=== PATIENT | male | born 1975 | race Caucasian/White ===

== ENCOUNTER 2016-10-23 22:34 | Emergency (ER) | payer OTHER ==
[2016-10-23 23:08] VITALS: BP 135/87; PULSE 71; RESP 18; TEMP 98.2; O2SAT 99
--- NOTE | 2016-10-23 23:32 | ED PDOC ---
HPI: General Adult Time Seen by Provider: 10/23/16 23:08 Chief Complaint (Nursing): Back Pain History Per: Patient Additional Complaint(s): Pt. states for the past month he's had atraumatic, non-radiating L sided shoulder pain and atraumatic R sided upper back pain. Reports pain to L shoulder is present only with movement especially when attempting to lift arm above his head. Pt. states that pain in R upper back is worse with twisting of upper torso and when leaning forward. Pt. states upper back pain is also worse when he takes a deep breath. Denies hemoptysis, cough, chest pain, fever, rash, hx of DVT/PE, leg pain, trauma, fever. Of note pt. is R hand dominant. Also reports he took Advil once 15 days ago without any relief. Past Medical History Reviewed: Historical Data, Nursing Documentation, Vital Signs Vital Signs: Last Vital Signs Temp 98.2 F 10/23/16 23:06 Pulse 71 10/23/16 23:06 Resp 18 10/23/16 23:06 BP 135/87 10/23/16 23:06 Pulse Ox 99 10/23/16 23:06 - Family History Family History: States: No Known Family Hx - Immunization History Hx Tetanus Toxoid Vaccination: No - Home Medications Home Medications: Ambulatory Orders Medication Instructions Recorded Cyclobenzaprine [Cyclobenzaprine 10 mg PO Q8 PRN #30 tab 10/23/16 HCl] Meloxicam [Mobic] 7.5 mg PO DAILY PRN #30 tab 10/23/16 - Allergies Allergies/Adverse Reactions: Allergies Allergy/AdvReac Type Severity Reaction Status Date / Time No Known Allergies Allergy Unverified 08/04/14 21:06 Review of Systems ROS Statement: Except As Marked, All Systems Reviewed And Found Negative Musculoskeletal: Positive for: Shoulder Pain, Back Pain Physical Exam - Physical Exam Appears: Positive for: Well, Non-toxic, No Acute Distress Skin: Positive for: Normal Color, Warm. Negative for: Rash Cardiovascular/Chest: Positive for: Regular Rate, Rhythm Respiratory: Positive for: Normal Breath Sounds. Negative for: Decreased Breath Sounds, Accessory Muscle Use, Wheezing, Respiratory Distress Back: Positive for: Normal Inspection, Muscle Spasm (R sided parascapular muscle spasm with tenderness). Negative for: L CVA Tenderness, R CVA Tenderness , Vertebral Tenderness Extremity: Positive for: Other (L shoulder with FROM actively without tenderness , swelling, or deformity; equal cigar binder strenght b/l) Neurologic/Psych: Positive for: Alert, Oriented - ECG O2 Sat by Pulse Oximetry: 99 - Progress ED Course And Treament: Toradol 15mg IM given. Need for x-ray was discussed with patient. Informed that his symptoms are likely due to muscle pain. Also informed that he must f/u with Dr. Middleton or an orthopedist for further evaluation. Pt. agreed that x-rays are not needed at this time and that he will f/u with Dr. Middleton. Disposition - Clinical Impression Clinical Impression: Shoulder pain, Acute back pain - Patient ED Disposition Is Patient to be Admitted: No - Disposition Referrals: [facility] [Outside] Nicholas Espinal MD [Staff Provider] - Shalom Middleton MD [Staff Provider] - Disposition Time: 23:36 Condition: STABLE Prescriptions: Cyclobenzaprine [Cyclobenzaprine HCl] 10 mg PO Q8 PRN #30 tab PRN Reason: Muscle Spasm Meloxicam [Mobic] 7.5 mg PO DAILY PRN #30 tab PRN Reason: pain Instructions: Muscle Spasm (ED), Back Pain (ED), Shoulder Pain (ED) Forms: [facility] ED School/Work Excuse Print Language: PALAUAN
== END 2016-10-23 23:44 | disposition home or self-care (01) ==
LOC: H.ER 22:34
DX: M54.9 Dorsalgia, unspecified (principal)